=== PATIENT | female | born 1950 | race Two or more races ===

== ENCOUNTER 2017-11-09 12:54 | Emergency (ER) | payer OTHER ==
[~2017-11-09] VITALS: Ht 157.5 cm; Wt 63.0 kg
[2017-11-09 13:14] VITALS: BP 131/81; Ht 157.5 cm; Wt 63.0 kg
[2017-11-09 16:13] LABS: microscopic required? YES; urine erythrocyte TRACE (NEGATIVE)
== END 2017-11-09 16:32 | disposition home or self-care (01) ==
LOC: ED 12:54
PROVIDERS: Emergency Medicine Emergency Medical Services
DX: N39.0 Urinary tract infection, site not specified (principal); I10 Essential (primary) hypertension
CPT/HCPCS: J1885